=== PATIENT | male | born 1990 | race Caucasian/White ===

== ENCOUNTER 2020-04-03 08:52 | Inpatient (IN) | payer OTHER ==
[~2020-04-03] VITALS: Ht 182.9 cm; Wt 74.7 kg
[2020-04-03] MEDS ORDERED: ALBU8HFA IH (09:34)
[2020-04-03 09:52] LABS: APPEARANCE,URINE CLEAR (CLEAR); BILIRUBIN,URINE NEGATIVE (NEGATIVE); GLUCOSE, URINE (UA) NEGATIVE (NEGATIVE); KETONES,URINE NEGATIVE (NEGATIVE); LEUKOCYTE ESTERASE ,URINE NEGATIVE (NEGATIVE); NITRATE,URINE NEGATIVE (NEGATIVE); OCCULT BLOOD,URINE NEGATIVE (NEGATIVE); PH,URINE 6.5 (5.0-8.0); PROTEIN,URINE NEGATIVE (NEGATIVE); UROBILINOGEN,URINE 0.2 mg/dL (<=1.0)
[2020-04-03 09:58] LABS: AMPHET/METH SCREEN,URINE POSITIVE (NEGATIVE); BARBITURATE SCREEN, URINE NEGATIVE (NEGATIVE); BENZODIAZEPINES SCREEN,URINE NEGATIVE (NEGATIVE); CANNABINOID SCREEN,URINE NEGATIVE (NEGATIVE); COCAINE SCREEN,URINE NEGATIVE (NEGATIVE); METHADONE SCREEN, URINE NEGATIVE (NEGATIVE); OPIATE SCREEN,URINE NEGATIVE (NEGATIVE)
[2020-04-03 09:59] LABS: BACTERIA,URINE None Seen /HPF (None Seen); PHENCYCLIDINE SCREEN,URINE NEGATIVE (NEGATIVE); RBC,URINE None Seen /HPF (0-2); WBC,URINE None Seen /HPF (0-5)
[2020-04-03 10:04] LABS: COVID AG,FIA SOURCE NASOPHARYNGEAL
[2020-04-03 10:07] LABS: BASOPHILS % (AUTO) 0.8 % (0.0-2.0); EOSINOPHILS % (AUTO) 3.9 % (1.0-6.0); HEMATOCRIT 44.4 % (41-53); HEMOGLOBIN 14.8 g/dL (13.5-17.5); LYMPHOCYTES # (AUTO) 2.1 K/uL (1.0-4.8); LYMPHOCYTES % (AUTO) 31.1 % (22.0-44.0); MEAN CORPUSCULAR HEMOGLOBIN 32.6 pg (26.0-34.0); MEAN CORPUSCULAR HGB CONC 33.4 G/dL (31.0-37.0); MEAN CORPUSCULAR VOLUME 98 fL (80-100); MONOCYTES # (AUTO) 0.4 K/uL (0.1-1.0); MONOCYTES % (AUTO) 5.3 % (2.0-9.0); NEUTROPHILS % (AUTO) 58.9 % (40.0-70.0); PLATELET COUNT (AUTO) 259 K/uL (150-450); RED BLOOD CELL COUNT(AUTO) 4.55 MIL/uL (4.50-5.90); RED CELL DISTRIBUTION WIDTH 13.2 % (11.5-14.5)
[2020-04-03 10:16] LABS: ANION GAP 6 mmol/L (8-16); CALCIUM, TOTAL 9.5 mg/dL (8.8-10.5); CARBON DIOXIDE 31 mmol/L (22-29); CHLORIDE 100 mmol/L (98-107); CREATININE 1.05 mg/dL (0.60-1.30); GLOMERULAR FILTR. RATE CALC > 60 mL/min (>60); GLUCOSE,RANDOM 95 mg/dL (70-110); POTASSIUM 4.3 mmol/L (3.5-5.1); SODIUM SERUM 137 mmol/L (136-145); UREA NITROGEN, BLOOD 13 mg/dL (7-18)
[2020-04-03 10:22] LABS: ALANINE AMINOTRANSFERASE 24 U/L (12-78); ALBUMIN 4.2 g/dL (3.4-5.0); ALKALINE PHOSPHATASE 74 U/L (46-116); ASPARTATE AMINOTRANSFERASE 17 U/L (15-37); BILIRUBIN,TOTAL 0.2 mg/dL (0.1-1.0); LIPASE 88 U/L (73-393); TOTAL PROTEIN, SERUM 7.7 g/dL (6.4-8.2)
[2020-04-03] MEDS ORDERED: ACETAMINOPHEN 325 MG TABLET PO PRN ×2 (10:30→12:15)
[2020-04-03] MEDS ORDERED: 0.9% SODIUM CHLORIDE 10 ML SYRINGE IVP PRN (10:30)
[2020-04-03] MEDS ORDERED: ONDANSETRON HCL 4 MG/2 ML VIAL IVP PRN (10:30)
[2020-04-03 11:23] VITALS: BP 131/76
[2020-04-03] MEDS ORDERED: ONDANSETRON HCL 4 MG TABLET PO PRN (12:15)
[2020-04-03] MEDS ORDERED: GuaiFENesin/D-METHORPHAN [SUGAR-FREE] 200-20MG/10 ML SYRUP UDCUP PO PRN (12:15)
[2020-04-03] MEDS ORDERED: LOPERAMIDE HCL 2 MG CAPSULE PO PRN (12:15)
[2020-04-03] MEDS ORDERED: PETROLATUM,WHITE 28 GM JELLY TP PRN (12:15)
[2020-04-03] MEDS ORDERED: CloNIDine HCL 0.1 MG TABLET PO PRN (12:15)
[2020-04-03] MEDS ORDERED: MAGNESIUM HYDROXIDE SUSPENSION 30 ML UDCUP PO PRN (12:15)
[2020-04-03] MEDS ORDERED: MAG HYDROX/AL HYDROX/SIMETH ES 30 ML SUSPENSION UDCUP PO PRN (12:15)
[2020-04-03] MEDS ORDERED: DOCUSATE SODIUM 100 MG CAPSULE PO PRN (12:15)
[2020-04-03] MEDS ORDERED: IBUPROFEN 400 MG TABLET PO PRN (12:15)
[2020-04-03] MEDS ORDERED: NICOTINE 14 MG/24 HOUR PATCH TD PRN (12:15)
[2020-04-03] MEDS ORDERED: ALBUTEROL SULFATE HFA 90 MCG/PUFF 8 GM INHALER IH PRN (12:15)
[2020-04-03] MEDS ORDERED: SODIUM CHLORIDE 0.9% 250 ML IV ONE (13:15)
[2020-04-03] MEDS: MetroNIDAZOLE 500 MG/NACL 100 ML IV SCH ×2 (13:32→20:38)
[2020-04-03 19:40] VITALS: BP 112/65
[2020-04-04] MEDS: MetroNIDAZOLE 500 MG/NACL 100 ML IV SCH ×2 (05:11→13:32)
[2020-04-04 05:18] VITALS: BP 106/67
[2020-04-04 07:59] VITALS: BP 99/63
[2020-04-04] MEDS ORDERED: SODIUM CHLORIDE 0.9% 500 ML IV ONE (12:27)
[2020-04-04] MEDS ORDERED: METR250 PO (13:07)
== END 2020-04-04 17:00 | DRG 392 ==
LOC: EMS 08:52 → 6S 10:58
PROVIDERS: ADMIT Internal Medicine; ATTEND Internal Medicine
DX: R19.7 Diarrhea, unspecified (principal); J45.909 Unspecified asthma, uncomplicated; Z20.828 Contact with and (suspected) exposure to other viral communicable diseases; F19.10 Other psychoactive substance abuse, uncomplicated; F17.210 Nicotine dependence, cigarettes, uncomplicated; Z79.899 Other long term (current) drug therapy; Z88.5 Allergy status to narcotic agent; Z88.8 Allergy status to other drugs, medicaments and biological substances
CPT/HCPCS: 87426; J3490; J7040; J7050; 36415-L1; 36415-TC; 71045-TC; U0003

== ENCOUNTER 2020-04-05 15:16 | Inpatient (IN) | payer OTHER ==
[~2020-04-05] VITALS: Ht 182.9 cm; Wt 68.2 kg
[~2020-04-05 15:16] MED LIST: ALBU8HFA IH; METR250 PO
[2020-04-05 16:04] LABS: BASOPHILS % (AUTO) 0.9 % (0.0-2.0); EOSINOPHILS % (AUTO) 3.1 % (1.0-6.0); HEMATOCRIT 47.4 % (41-53); HEMOGLOBIN 16.3 g/dL (13.5-17.5); LYMPHOCYTES # (AUTO) 2.1 K/uL (1.0-4.8); LYMPHOCYTES % (AUTO) 28.3 % (22.0-44.0); MEAN CORPUSCULAR HEMOGLOBIN 33.2 pg (26.0-34.0); MEAN CORPUSCULAR HGB CONC 34.3 G/dL (31.0-37.0); MEAN CORPUSCULAR VOLUME 97 fL (80-100); MONOCYTES # (AUTO) 0.4 K/uL (0.1-1.0); MONOCYTES % (AUTO) 5.6 % (2.0-9.0); NEUTROPHILS # (AUTO) 4.6 K/uL (1.8-7.7); NEUTROPHILS % (AUTO) 62.1 % (40.0-70.0); PLATELET COUNT (AUTO) 278 K/uL (150-450); RED CELL DISTRIBUTION WIDTH 12.9 % (11.5-14.5)
[2020-04-05] MEDS ORDERED: 0.9% SODIUM CHLORIDE 10 ML SYRINGE IVP PRN (17:30)
[2020-04-05] MEDS ORDERED: ACETAMINOPHEN 325 MG TABLET PO PRN ×2 (17:30→19:30)
[2020-04-05 17:46] LABS: ANION GAP 7 mmol/L (8-16); CALCIUM, TOTAL 9.6 mg/dL (8.8-10.5); CARBON DIOXIDE 29 mmol/L (22-29); CHLORIDE 104 mmol/L (98-107); CREATININE 0.99 mg/dL (0.60-1.30); GLOMERULAR FILTR. RATE CALC > 60 mL/min (>60); GLUCOSE,RANDOM 100 mg/dL (70-110); POTASSIUM 5.4 mmol/L (3.5-5.1); SODIUM SERUM 140 mmol/L (136-145); UREA NITROGEN, BLOOD 16 mg/dL (7-18)
[2020-04-05 17:52] LABS: ALANINE AMINOTRANSFERASE 21 U/L (12-78); ALBUMIN 4.1 g/dL (3.4-5.0); ALKALINE PHOSPHATASE 65 U/L (46-116); ASPARTATE AMINOTRANSFERASE 20 U/L (15-37); BILIRUBIN,TOTAL 0.3 mg/dL (0.1-1.0); TOTAL PROTEIN, SERUM 7.8 g/dL (6.4-8.2)
[2020-04-05] MEDS ORDERED: LORazepam 1 MG TABLET PO ONE (18:00)
[2020-04-05 18:36] VITALS: BP 108/68
[2020-04-05] MEDS ORDERED: IPRATROPIUM BROMIDE 0.5 MG/2.5 ML NEB SOLUTION NEB PRN (19:30)
[2020-04-05] MEDS ORDERED: ONDANSETRON HCL 4 MG/2 ML VIAL IVP PRN (19:30)
[2020-04-05] MEDS ORDERED: ALBUTEROL SULFATE 2.5 MG/0.5 ML NEB SOLUTION NEB PRN (19:30)
[2020-04-05] MEDS ORDERED: MAGNESIUM HYDROXIDE SUSPENSION 30 ML UDCUP PO PRN (19:30)
[2020-04-05] MEDS ORDERED: ZOLPIDEM TARTRATE 5 MG TABLET PO PRN (19:30)
[2020-04-05] MEDS ORDERED: BISACODYL 10 MG RECTAL RECTAL SUPPOSITORY PR PRN (19:30)
[2020-04-05 20:09] VITALS: BP 114/41
[2020-04-05 23:33] VITALS: BP 104/57
[2020-04-06 04:20] VITALS: BP 108/60
[2020-04-06 06:34] LABS: BASOPHILS % (AUTO) 0.7 % (0.0-2.0); HEMATOCRIT 44.5 % (41-53); HEMOGLOBIN 15.2 g/dL (13.5-17.5); LYMPHOCYTES # (AUTO) 2.4 K/uL (1.0-4.8); MEAN CORPUSCULAR HEMOGLOBIN 32.8 pg (26.0-34.0); MEAN CORPUSCULAR HGB CONC 34.1 G/dL (31.0-37.0); MEAN CORPUSCULAR VOLUME 96 fL (80-100); MONOCYTES # (AUTO) 0.4 K/uL (0.1-1.0); MONOCYTES % (AUTO) 7.3 % (2.0-9.0); NEUTROPHILS # (AUTO) 2.6 K/uL (1.8-7.7); PLATELET COUNT (AUTO) 250 K/uL (150-450); RED BLOOD CELL COUNT(AUTO) 4.63 MIL/uL (4.50-5.90); RED CELL DISTRIBUTION WIDTH 13.1 % (11.5-14.5)
[2020-04-06 07:15] VITALS: BP 99/60
[2020-04-06 07:28] LABS: ALANINE AMINOTRANSFERASE 21 U/L (12-78); ALBUMIN 3.6 g/dL (3.4-5.0); ALKALINE PHOSPHATASE 60 U/L (46-116); ANION GAP 6 mmol/L (8-16); ASPARTATE AMINOTRANSFERASE 18 U/L (15-37); BILIRUBIN,TOTAL 0.3 mg/dL (0.1-1.0); CALCIUM, TOTAL 9.1 mg/dL (8.8-10.5); CARBON DIOXIDE 32 mmol/L (22-29); CHLORIDE 99 mmol/L (98-107); CREATININE 1.01 mg/dL (0.60-1.30); GLOMERULAR FILTR. RATE CALC > 60 mL/min (>60); GLUCOSE,RANDOM 93 mg/dL (70-110); POTASSIUM 4.5 mmol/L (3.5-5.1); SODIUM SERUM 137 mmol/L (136-145); UREA NITROGEN, BLOOD 16 mg/dL (7-18)
[2020-04-06 11:00] VITALS: BP 100/63
[2020-04-06 16:20] VITALS: BP 108/66
[2020-04-06] MEDS ORDERED: METR500 PO (16:30)
[2020-04-06] MEDS: ChlorproMAZINE HCL 50 MG TABLET PO SCH (17:26)
[2020-04-06 19:00] VITALS: BP 94/44
[2020-04-07 05:30] VITALS: BP 99/57
[2020-04-07 07:26] VITALS: BP 132/56
[2020-04-07] MEDS: ChlorproMAZINE HCL 50 MG TABLET PO SCH (08:21)
[2020-04-07] MEDS ORDERED: CHLO50TA41 PO (10:49)
== END 2020-04-07 13:10 | DRG 885 ==
LOC: EMS 15:17 → 6S 17:51
PROVIDERS: ADMIT Hospitalist; ATTEND Hospitalist
DX: F33.2 Major depressive disorder, recurrent severe without psychotic features (principal); R45.851 Suicidal ideations; J45.909 Unspecified asthma, uncomplicated; F17.210 Nicotine dependence, cigarettes, uncomplicated; F15.90 Other stimulant use, unspecified, uncomplicated; Z88.6 Allergy status to analgesic agent; F41.9 Anxiety disorder, unspecified
CPT/HCPCS: 93005; G0480